=== PATIENT | male | born 1995 | race Caucasian/White ===

== ENCOUNTER 2018-06-17 16:05 | Emergency (ER) | payer BC ==
[~2018-06-17] VITALS: Ht 185.4 cm; Wt 94.2 kg
[2018-06-17] MEDS ORDERED: LORazepam 1MG TABLET PO ONE (16:30)
[2018-06-17 17:07] LABS: BASOPHILS # (AUTO) 0.02 x10^3/uL (0-0.1); BASOPHILS % (AUTO) 0 % (0-1); EOSINOPHILS # (AUTO) 0.12 x10^3/uL (0-0.4); EOSINOPHILS % (AUTO) 1 % (1-7); LYMPHOCYTES # (AUTO) 1.77 x10^3/uL (1-3.4); LYMPHOCYTES % (AUTO) 22 % (22-44); MD NO; MEAN CORPUSCULAR HEMOGLOBIN 30.4 pg (27.5-34.5); MEAN CORPUSCULAR HGB CONC 34.4 g/dL (33.2-36.2); MEAN CORPUSCULAR VOLUME 88.4 fL (81-97); MEAN PLATELET VOLUME 7.6 fL (7.4-10.4); MONOCYTES # (AUTO) 0.72 x10^3/uL (0.2-0.8); MONOCYTES % (AUTO) 9 % (2-9); NEUTROPHILS # (AUTO) 5.58 x10^3/uL (1.8-6.8); NEUTROPHILS % (AUTO) 68 % (42-75); PLATELET COUNT 385 x10^3/uL (130-400); RED BLOOD COUNT 5.33 x10^6/uL (4.38-5.82); RED CELL DISTRIBUTION WIDTH 12.2 % (9.4-14.8)
[2018-06-17 17:17] LABS: ALANINE AMINOTRANSFERASE 34 U/L (12-78); ALBUMIN 4.5 g/dL (3.4-5.0); ANION GAP 8 mmol/L (5-15); CALCIUM 9.4 mg/dL (8.5-10.1); CHLORIDE 108 mmol/L (98-107); CREATININE 1.16 mg/dL (0.7-1.3)
[2018-06-17 17:19] LABS: ALKALINE PHOSPHATASE 60 U/L (45-117); BILIRUBIN,TOTAL 0.8 mg/dL (0.2-1.0)
--- NOTE | 2018-06-17 18:26 | NUR ---
Pt to 23 from lobby
--- NOTE | 2018-06-17 18:35 | NUR ---
PT SITTING UP IN GURNEY, AWAKE/ALERT/CALM. PT REPORTS EPISODE OF PALPITATIONS/ANXIEY TODAY THAT "HAS PASSED". PT DENIES CP/SOB/N. PT REPORTS "I WOULD LIKE TO HAVE MY BELLY CHECKED OUT"- REPORTS INTERMITTENT RUQ PAIN X TWO YEARS, CONSISTANT TODAY. RUQ NON-TENDER TO PALPATION, "IT FEELS LIKE IT CATCHES WHEN I MOVE". DENIES N/V/D/FEVER. PWD. BP/SPO2 MONITOR IN PLACE. PT DENIES NEED FOR ATIVAN AT THIS TIME. MEDICATION HELD.
[2018-06-17] MEDS ORDERED: KETOROLAC 30 MG/1 ML ONE ×2 (18:52→18:57)
[2018-06-17] MEDS ORDERED: LORazepam 1MG TABLET ONE (18:57)
[2018-06-17] MEDS ORDERED: KETOROLAC 30 MG/1 ML IM ONE (19:00)
--- NOTE | 2018-06-17 19:05 | NUR ---
RN TO ROOM TO MEDICATE PT WITH PAIN MEDICATIONS AND PT HAS BECOME MARKEDLY MORE ANXIOUS AND RESTLESS. PT NOW AGREEING TO TAKE ATIVAN ORDER. PT MEDICATED WITH ATIVAN AT THIS TIME. PT AMBUALTED STEADILY TO BATHROOM TO PROVIDE UA REPORT TO JOSIE GONZALEZ
[2018-06-17 19:06] VITALS: BP 156/80
--- NOTE | 2018-06-17 19:14 | NUR ---
Report from JOSIE Almendarez.
--- NOTE | 2018-06-17 19:19 | NUR ---
UA sent. Patient reports decreased pain. SO at bedside. No other needs.
[2018-06-17 19:28] LABS: MICROSCOPIC NOT IND
[2018-06-17 19:32] LABS: CULTURE INDICATED? NO
--- NOTE | 2018-06-17 19:58 | NUR ---
Patient/Caregiver given discharge instructions and they have confirmed that they understand the instructions. Patient ambulatory with steady gait.
== END 2018-06-17 19:59 | disposition home or self-care (01) ==
LOC: ED 19:53
DX: G89.29 Other chronic pain (principal); R10.11 Right upper quadrant pain
CPT/HCPCS: 36415; 76700; 80053; 81003; 83690; 85025; 93005; 96372; 99284; J1885

== ENCOUNTER 2018-09-17 11:18 | Emergency (ER) | payer BC ==
[~2018-09-17] VITALS: Ht 185.4 cm; Wt 95.0 kg
[2018-09-17 11:22] VITALS: BP 155/90
[2018-09-17] MEDS ORDERED: SODIUM CHLORIDE FLUSH 10ML SYR IVF ONE (12:00)
[2018-09-17 12:10] LABS: BASOPHILS # (AUTO) 0.05 x10^3/uL (0-0.1); BASOPHILS % (AUTO) 1 % (0-1); EOSINOPHILS # (AUTO) 0.13 x10^3/uL (0-0.4); EOSINOPHILS % (AUTO) 2 % (1-7); LYMPHOCYTES # (AUTO) 1.19 x10^3/uL (1-3.4); LYMPHOCYTES % (AUTO) 14 % (22-44); MD NO; MEAN CORPUSCULAR HEMOGLOBIN 29.6 pg (27.5-34.5); MEAN CORPUSCULAR HGB CONC 33.1 g/dL (33.2-36.2); MEAN CORPUSCULAR VOLUME 89.4 fL (81-97); MEAN PLATELET VOLUME 6.9 fL (7.4-10.4); MONOCYTES # (AUTO) 0.65 x10^3/uL (0.2-0.8); MONOCYTES % (AUTO) 8 % (2-9); NEUTROPHILS # (AUTO) 6.28 x10^3/uL (1.8-6.8); NEUTROPHILS % (AUTO) 76 % (42-75); PLATELET COUNT 324 x10^3/uL (130-400); RED BLOOD COUNT 4.96 x10^6/uL (4.38-5.82); RED CELL DISTRIBUTION WIDTH 12.9 % (9.4-14.8)
--- NOTE | 2018-09-17 12:16 | NUR ---
PT ARRIVES TO ED WITH C/O RIGHT UPPER QUADRANT PAIN. PT REPORTS HE HAS A PRESSURE THAT FEELS BETTER WHEN HE APPLIES PRESSURE TO HIS ABD. PT REPORTS THAT HE HAS NO BLOOD IN STOOL. HAS NOT SUFFERED TRUAMA AND HAS NO BRUISING OR TENDERNESS TO INDICATE OTHERWISE. PT REPORTS NO GI HX. PT REPORTS THAT IT WORSENT WITH EATING. PT PIV PLACED AND AWAITING FURTHER ORDERS. CT CALLED FOR ORAL CONTRAST.
[2018-09-17 12:19] LABS: INTERNATIONAL NORMALIZED RATIO 0.97 (0.93-1.1); PROTHROMBIN TIME 10.2 Seconds (9.6-11.5)
[2018-09-17 12:22] LABS: ALANINE AMINOTRANSFERASE 37 U/L (12-78); ANION GAP 3 mmol/L (5-15); CALCIUM 9.4 mg/dL (8.5-10.1); CHLORIDE 107 mmol/L (98-107); CREATININE 1.13 mg/dL (0.7-1.3)
[2018-09-17 12:25] LABS: ALKALINE PHOSPHATASE 66 U/L (45-117); BILIRUBIN,TOTAL 0.4 mg/dL (0.2-1.0); TOTAL PROTEIN 7.6 g/dL (6.4-8.2)
[2018-09-17] MEDS ORDERED: OMNIPAQUE 350 MG/ML, 100ML BOTTLE ONE (13:34)
--- NOTE | 2018-09-17 14:14 | NUR ---
Patient/Caregiver given discharge instructions and they have confirmed that they understand the instructions. Patient ambulatory with steady gait.
== END 2018-09-17 14:30 | disposition home or self-care (01) ==
LOC: ED 13:51
DX: K92.1 Melena (principal); R10.11 Right upper quadrant pain; J18.9 Pneumonia, unspecified organism; F41.9 Anxiety disorder, unspecified
CPT/HCPCS: 36415; 71045; 74177; 80053; 83690; 85025; 85610; 86677; 99284; Q9967

== ENCOUNTER → 2018-10-21 | Outpatient (CLI) | payer BC | END | disposition home or self-care (01) | LOC: RAD 09:46 | PROVIDERS: ATTEND Internal Medicine Gastroenterology | DX: J18.9 Pneumonia, unspecified organism (principal); R19.7 Diarrhea, unspecified; R93.5 Abnormal findings on diagnostic imaging of other abdominal regions, including retroperitoneum | CPT/HCPCS: 78227; A9537 ==

== ENCOUNTER 2019-04-21 22:10 | Emergency (ER) | payer BC ==
[~2019-04-21] VITALS: Ht 185.4 cm; Wt 99.0 kg
[2019-04-21] MEDS ORDERED: SODIUM CHLORIDE FLUSH 10ML SYR IVF ONE (22:30)
[2019-04-21] MEDS ORDERED: KETOROLAC 30 MG/1 ML IVPush ONE (22:30)
[2019-04-21] MEDS ORDERED: KETOROLAC 30 MG/1 ML ONE (22:36)
[2019-04-21 22:45] LABS: BASOPHILS # (AUTO) 0.04 x10^3/uL (0-0.1); BASOPHILS % (AUTO) 0 % (0-1); EOSINOPHILS # (AUTO) 0.11 x10^3/uL (0-0.4); EOSINOPHILS % (AUTO) 1 % (1-7); LYMPHOCYTES # (AUTO) 2.34 x10^3/uL (1-3.4); LYMPHOCYTES % (AUTO) 24 % (22-44); MD NO; MEAN CORPUSCULAR HGB CONC 33.4 g/dL (33.2-36.2); MEAN CORPUSCULAR VOLUME 89.8 fL (81-97); MEAN PLATELET VOLUME 6.9 fL (7.4-10.4); MONOCYTES # (AUTO) 0.84 x10^3/uL (0.2-0.8); MONOCYTES % (AUTO) 9 % (2-9); NEUTROPHILS # (AUTO) 6.49 x10^3/uL (1.8-6.8); NEUTROPHILS % (AUTO) 66 % (42-75); PLATELET COUNT 433 x10^3/uL (130-400); RED BLOOD COUNT 5.24 x10^6/uL (4.38-5.82)
[2019-04-21 22:56] LABS: ALANINE AMINOTRANSFERASE 42 U/L (12-78); ALBUMIN 4.2 g/dL (3.4-5.0); ANION GAP 7 mmol/L (5-15); CHLORIDE 108 mmol/L (98-107); CREATININE 1.26 mg/dL (0.7-1.3)
[2019-04-21 23:01] LABS: ALKALINE PHOSPHATASE 58 U/L (45-117); BILIRUBIN,TOTAL 0.4 mg/dL (0.2-1.0); TOTAL PROTEIN 8.1 g/dL (6.4-8.2); TROPONIN I < 0.015 ng/mL (0.000-0.045)
[2019-04-21] MEDS ORDERED: LORazepam 2 MG/ML, 1ML ONE (23:46)
[2019-04-21] MEDS ORDERED: MORPHINE SULFATE 4 MG/ML, 1ML ONE (23:46)
[2019-04-21 23:49] LABS: AMPHETAMINE SCREEN, URINE Negative (Negative); BARBITURATE SCREEN, URINE Negative (Negative); BENZODIAZEPINE SCREEN, URINE Negative (Negative); CANNABINOID SCREEN, URINE Negative (Negative); COCAINE SCREEN, URINE Negative (Negative); METHADONE SCREEN, URINE Negative (Negative); OPIATE SCREEN, URINE Negative (Negative)
[2019-04-22] MEDS ORDERED: LORazepam 2 MG/ML, 1ML IVPush ONE
[2019-04-22] MEDS ORDERED: morphine SULFATE 10 MG/ML, 1ML IVPush ONE
[2019-04-22 00:05] LABS: MICROSCOPIC NOT IND
[2019-04-22 00:09] LABS: CULTURE INDICATED? NO
[2019-04-22 01:18] VITALS: BP 134/76
== END 2019-04-22 01:21 | disposition home or self-care (01) ==
LOC: ED 04-22 01:15
DX: R10.11 Right upper quadrant pain (principal); R11.0 Nausea
CPT/HCPCS: 36415; 71045; 74176; 80053; 80307; 81003; 83690; 84484; 85025; 93005; 96374; 96375; 99284; J1885; J2060; J2270; J7512; 96372

== ENCOUNTER 2019-10-24 12:07 | Emergency (ER) | payer BC, OTHER ==
[~2019-10-24] VITALS: Ht 185.4 cm; Wt 99.0 kg
[2019-10-24] MEDS ORDERED: DIAZEPAM 5 MG TABLET PO ONE (13:00)
[2019-10-24] MEDS ORDERED: DIAZEPAM 5 MG TABLET ONE (13:08)
[2019-10-24 13:18] LABS: BASOPHILS # (AUTO) 0.03 x10^3/uL (0-0.1); BASOPHILS % (AUTO) 0 % (0-1); EOSINOPHILS # (AUTO) 0.12 x10^3/uL (0-0.4); EOSINOPHILS % (AUTO) 2 % (1-7); LYMPHOCYTES # (AUTO) 1.68 x10^3/uL (1-3.4); LYMPHOCYTES % (AUTO) 24 % (22-44); MD NO; MEAN CORPUSCULAR HEMOGLOBIN 29.9 pg (27.5-34.5); MEAN CORPUSCULAR HGB CONC 33.7 g/dL (33.2-36.2); MEAN CORPUSCULAR VOLUME 88.7 fL (81-97); MEAN PLATELET VOLUME 7.3 fL (7.4-10.4); MONOCYTES # (AUTO) 0.69 x10^3/uL (0.2-0.8); MONOCYTES % (AUTO) 10 % (2-9); NEUTROPHILS # (AUTO) 4.55 x10^3/uL (1.8-6.8); NEUTROPHILS % (AUTO) 64 % (42-75); PLATELET COUNT 296 x10^3/uL (130-400); RED BLOOD COUNT 5.14 x10^6/uL (4.38-5.82); RED CELL DISTRIBUTION WIDTH 13.1 % (9.4-14.8)
[2019-10-24 13:21] LABS: ALANINE AMINOTRANSFERASE 47 U/L (12-78); ALBUMIN 4.3 g/dL (3.4-5.0); ANION GAP 7 mmol/L (5-15); CALCIUM 8.9 mg/dL (8.5-10.1); CHLORIDE 107 mmol/L (98-107); CREATININE 1.19 mg/dL (0.7-1.3)
[2019-10-24 13:26] LABS: ALKALINE PHOSPHATASE 58 U/L (45-117); BILIRUBIN,TOTAL 0.9 mg/dL (0.2-1.0); TOTAL PROTEIN 7.8 g/dL (6.4-8.2); TROPONIN I < 0.015 ng/mL (0.000-0.045)
[2019-10-24 14:03] LABS: MICROSCOPIC NOT IND
--- NOTE | 2019-10-24 14:15 | NUR ---
pt resting in bed, call light in reach.
[2019-10-24 14:18] LABS: CULTURE INDICATED? NO
--- NOTE | 2019-10-24 15:26 | NUR ---
Pt resting in bed, call light in reach.
[2019-10-24 15:43] VITALS: BP 133/73
== END 2019-10-24 17:15 | disposition home or self-care (01) ==
LOC: ED 13:12
DX: H61.23 Impacted cerumen, bilateral (principal); R00.0 Tachycardia, unspecified; R07.9 Chest pain, unspecified
CPT/HCPCS: 36415; 71045; 80053; 81003; 83880; 84484; 85025; 93005; 99285